=== PATIENT | female | born 1960 | race Caucasian/White ===

== ENCOUNTER 2017-05-18 13:30 | Inpatient (IN) | payer MEDICARE ==
[~2017-05-18] VITALS: Ht 172.7 cm; Wt 138.0 kg
--- NOTE | ~2017-05-18 | OR ---
PATIENT'S NAME: EVON [facility] AGE: 56 Y [address] . ROOM: [id number] [place] [id number] LOCATION: GICU ADMIT DATE: 05/18/2017 OR/Procedure Report DISCHARGE DATE: FAMILY PHYSICIAN: AUSTIN PEREZ MD ATTENDING PHYSICIAN: KEN BRADLEY SURGEON: Virgil Hoffman MD SOW FARM TECHNICIAN: DATE OF PROCEDURE: 05/24/2017 PREOPERATIVE DIAGNOSIS: Necrotizing cellulitis, left groin, suprapubic, and left lower quadrant pannus. POSTOPERATIVE DIAGNOSES: 1. Necrotizing cellulitis, left groin, suprapubic, and left lower quadrant pannus. 2. New left flank cellulitis. PROCEDURE PERFORMED: Exam under anesthesia with irrigation and debridement of necrotic tissue with incision and drainage of left lateral pannus/flank purulent cellulitis. ANESTHESIA: General. ESTIMATED BLOOD LOSS: 100 mL. SPECIMEN: Necrotic tissue, not sent. INDICATION: The patient is a 56-year-old young lady, who had vulvar necrotizing fasciitis, cellulitis. She presents now for third debridement. She has extending cellulitis along her left lower pannus toward the left flank. DESCRIPTION OF PROCEDURE: After informed consent, the patient was taken to the operating room, and after general endotracheal anesthesia, the patient was placed in stirrups, and her perineum, vulva, abdomen, and left flank were prepped and draped into a sterile field. We began by inspecting the vulvar incision which is along the length of the left side. It is actually very clean, no necrotic tissue. The skin at that wound was reapproximated with interrupted 3-0 Prolene inverted vertical mattress formation in order to get the skin apposed and sealed down, so that we can place a wound VAC eventually above it. The suprapubic location had several other cutaneous undrained pockets of purulent fluid which were opened. We debrided the necrotic tissue. We went down above the pubis to the rectus sheath and the sheath again looked without evidence of ischemia. The overlying pannus in the lateral left region had increased induration. We made a 10 inch incision in PATIENT'S NAME: EVON [facility] AGE: 56 Y [address] . ROOM: [id number] [place], [place] [id number] LOCATION: [facility] ADMIT DATE: 05/18/2017 OR/Procedure Report DISCHARGE DATE: FAMILY PHYSICIAN: AUSTIN PEREZ MD ATTENDING PHYSICIAN: KEN BRADLEY the left lower quadrant of the pannus, separate from our previous suprapubic transverse incision. We went through 10 inches of inflammatory changes of the subcutaneous tissue with micro abscesses. We broke free until we had met resistance, indicating good tissue. This wound did communicate down to the suprapubic wound. There was no devitalized tissue at this time. Therefore, when we were done, we placed Dakin soaked Kerlix into the wound, a total of 5 pieces. Pressure was held. The patient tolerated procedure well and was transferred to recovery room in stable condition. VIRGIL HOFFMAN MD WTS/modl /[id number] d: 05/24/17 1527 t: 05/30/17 0957, OPERATIVE SUMMARY
--- NOTE | ~2017-05-18 | DS ---
PATIENT'S NAME: ROBBIE BARNARD [facility] AGE: 56 Y [address] ROOM: [address] [address] LOCATION: [facility] ADMIT DATE: 05/18/2017 Discharge Summary DISCHARGE DATE: 06/05/2017 FAMILY PHYSICIAN: Nelly Ayers MD ATTENDING PHYSICIAN: Fawad Aquino DISCHARGE DIAGNOSES: 1. Sepsis secondary to left pannus/vulvar necrotizing cellulitis. 2. Polymicrobial wound infection. 3. Bacteremia with Gram-positive cocci (at [facility]). 4. Diabetes mellitus, 2, uncontrolled with an A1c of 10.5. 5. Chronic obstructive pulmonary disease. 6. Severe protein malnutrition with a prealbumin of less than 3 and albumin of 1. 7. Morbid obesity with a body mass index of 47. 8. Severe vitamin D deficiency (25-hydroxy D level of 15). 9. Hypokalemia. 10. Hypophosphatemia. DISCHARGE MEDICATIONS: 1. Lipitor 20 mg p.o. at bedtime. 2. Calcium carbonate with vitamin D 500 mg p.o. twice daily. 3. Colace 100 mg p.o. b.i.d. 4. Lasix 20 mg p.o. q.a.m. 5. NovoLog 9 units subcutaneously t.i.d. with meals (FlexPen). 6. Levemir 20 units subcutaneously at bedtime (FlexPen). 7. Potassium chloride 20 mEq p.o. daily. 8. Senna one tablet p.o. twice daily. 9. Zoloft 150 mg p.o. daily. 10. Vitamin D 50,000 units weekly x14 doses, started on 05/25/2017 and last dose will be 08/24/2017. 11. APAP 650 mg p.o. q.4 hours p.r.n. 12. Aubrey 5/325 one to two tablets p.o. q.4 hours p.r.n. 13. Metformin 500 mg p.o. daily. PRINCIPAL PROCEDURES: The patient underwent an I and D of her wound on three different occasions. Dates for these procedures were 05/18/2017, 05/20/2017, and 05/24/[address] Sutton's direction. Please refer to the operative notes for a detailed outline of each procedure. PERTINENT LABORATORY DATA: Wound culture did end up growing out polymicrobial species including Streptococcus anginosus and Peptostreptococcus anaerobius and Prevotella bivia. Blood cultures at our facility were no growth as was urine culture. White count upon day of admission was elevated at 20,300; this climbed to 30,700, and at the day of discharge was 8.1. The patient did have PATIENT'S NAME: ROBBIE BARNARD [facility] AGE: 56 Y [address] ROOM: [id number] [place], [place] [address] LOCATION: [facility] ADMIT DATE: 05/18/2017 Discharge Summary DISCHARGE DATE: 06/05/2017 FAMILY PHYSICIAN: Nelly Ayers MD ATTENDING PHYSICIAN: Fawad Aquino some mild hypokalemia with the lowest value being 3.2 on May 23. On the day of discharge, was 4.2. The patient was found to have an elevated hemoglobin A1c at 10.5, prealbumin level of less than 3, and albumin level of 1.0. HOSPITAL COURSE: Please refer to the admitting H and P dictated by Dr. Aquino for a more detailed outline of the patient's presentation. The patient was transferred to our facility from outside emergency department in [place] concerning a left groin abscess with cellulitis. The patient was felt to be in septic shock secondary to the skin infection. A procalcitonin level was elevated at 6.14 and lactate was 4.5. She was placed on the sepsis protocol, and was transitioned from ceftriaxone and vancomycin from the outside facility to vancomycin, Zosyn, and clindamycin, given the concern for necrotizing fasciitis. Dr. Sutton at that point had been contacted and consulted. The patient was given fluid boluses, given she was slightly hypotensive with blood pressures in the 80s. Culture grew out as what was aforementioned. The patient was placed on insulin sliding scale for blood sugar control. The patient was placed on a AMBULANCE ASSISTANT for pain control. The blood cultures did come back positive from the outside, felt more of hospital. A PICC line consult was placed. The patient had consultation with Nutrition, given her severe protein-calorie malnutrition. The vancomycin was ultimately discontinued. The patient was placed on Lovenox for DVT prophylaxis. She was ultimately transferred out of the unit. She was discharged to PCU status on 05/23/2017. She continued to be followed by Dr. Sutton from General Surgery standpoint. A 25-hydroxy D level was drawn and found to be deficient at 15. Therefore, she was placed on replacement of ergocalciferol 50,000 units weekly, starting on 05/25/2017. Wound Ostomy Service was also asked to follow and help manage in terms of wound management. The patient continued to make small gains. She continued on the Zosyn through 06/02/2017. The AMBULANCE ASSISTANT was ultimately discontinued on 05/29/2017. Ultimately, talk of a wound VAC was made, and the patient was readied for wound VAC placement. On 06/03/2017, arrangements started to be made for a discharge plan, mostly with assistance getting home wound VAC set up. This ultimately was accomplished, and the patient was able to discharge to her home on 06/05/2017. critical care educator spent a great deal of time with the patient, educating her on how to appropriately give herself insulin. Ultimately, the patient is discharged to her own home on 06/05/2017. We asked that she continue to track her blood sugars and follow up with Dr. Ayers in three to five days. She is to see Dr. Sutton in two weeks. She should adhere to a diabetic 1800-calorie diet. Activity is as tolerated. Home Health will be asked to follow along with this patient, given her wound VAC changes that will be needed. Care Management was greatly involved with her discharge. Home Health will work with the Wound Care team for further instructions. The patient voiced understanding of this plan. The patient PATIENT'S NAME: ROBBIE BARNARD [facility] AGE: 56 Y [address] ROOM: [address] [address] LOCATION: [facility] ADMIT DATE: 05/18/2017 Discharge Summary DISCHARGE DATE: 06/05/2017 FAMILY PHYSICIAN: Nelly Ayers MD ATTENDING PHYSICIAN: Fawad Aquino lives in [place], and feels she can manage there at home with the help of Home Health, and follow up with her primary care physician. Discharge of this patient took greater than 60 minutes, and included coordinating care with Wound Ostomy providers, Care Management, Diabetic educators, and Primary Care team. MILAD ALLRED PA-C FOR MD SHAY LIEBERMAN/modl /[id number] CC: MD Nelly Hein MD d: 06/06/17 0154 t: 06/06/17 1356, DISCHARGE SUMMARY
--- NOTE | ~2017-05-18 | OR ---
PATIENT'S NAME: EVON [facility] AGE: 56 Y [address] ROOM: [place] [address] LOCATION: GICU ADMIT DATE: 05/18/2017 OR/Procedure Report DISCHARGE DATE: FAMILY PHYSICIAN: PHYSICIAN, UNKNOWN ATTENDING PHYSICIAN: KEN BRADLEY SURGEON: Virgil Sutton MD QUALITY ASSURANCE TECHNICIAN: DATE OF PROCEDURE: 05/20/2017 PREOPERATIVE DIAGNOSES: 1. Left vulva, lower abdominal wall, and left groin necrotizing cellulitis. 2. Sepsis. POSTOPERATIVE DIAGNOSES: 1. Left vulva, lower abdominal wall, and left groin necrotizing cellulitis. 2. Sepsis. PROCEDURE PERFORMED: Second-look left groin/lower abdominal wall wound debridement. ANESTHESIA: General. ESTIMATED BLOOD LOSS: 50 mL. SPECIMEN: Necrotic subcutaneous tissue. INDICATION: The patient is a 56-year-old young lady, who came in approximately 48 hours ago with sepsis and found to have a significant cellulitis and abscess with skin necrosis of the left vulvar, groin, and lower abdominal wall region. She immediately underwent intraoperative wound debridement with mostly subcutaneous fat necrosis and skin. She had no evidence of fasciitis of the lower rectus sheath. She has remained fairly stable with clinical improvement, but is on Levophed for blood pressure support. I scheduled a second-look wound debridement. DESCRIPTION OF PROCEDURE: After informed consent, the patient was taken from the ICU directly to the operating room. She underwent general anesthetic. We then put her lower extremities in stirrups and prepped and draped the abdomen, flanks, inguinal, and vulvar regions. We removed all dressings. We initially debrided the transverse lower abdominal incision of necrotic tissue and both the medial and lateral edges had to be debrided of further necrotic subcutaneous tissue. We got back to a bleeding base of tissue circumferentially around the wound. We did extend the left groin incision horizontally another 5 inches. Nkaul necrosis was not noted, but ischemic subcutaneous tissue was debrided. The vulvar wound appeared excellent with [facility] 56 Y [address] ROOM: [place] [address] LOCATION: GICU ADMIT DATE: 05/18/2017 OR/Procedure Report DISCHARGE DATE: FAMILY PHYSICIAN: PHYSICIAN, UNKNOWN ATTENDING PHYSICIAN: KEN BRADLEY minimal debridement needed. We repacked it with Betadine-soaked Kerlix x2. The procedure was terminated. Instrument, sponge, and needle count were correct. She will be transferred to ICU in stable condition. MD LIS HILL/modl /[id number] d: 05/20/17 1732 t: 05/30/17 0954, OPERATIVE SUMMARY
--- NOTE | ~2017-05-18 | OR ---
PATIENT'S NAME: EVON [facility] AGE: 56 Y [address] ROOM: [place] [address] LOCATION: GICU ADMIT DATE: 05/18/2017 OR/Procedure Report DISCHARGE DATE: FAMILY PHYSICIAN: PHYSICIAN, UNKNOWN ATTENDING PHYSICIAN: KEN BRADLEY SURGEON: Virgil Sutton MD DATA KEYER: DATE OF PROCEDURE: 05/18/2017 PREOPERATIVE DIAGNOSIS: Left vulvar, left inguinal region, and pubic symphysis location subcutaneous emphysema with cellulitis and bullae, possible underlying necrotizing fasciitis. POSTOPERATIVE DIAGNOSIS: Subcutaneous emphysema with abscess, left vulvar, suprapubic, and left inguinal region. PROCEDURE: 1. Exam under anesthesia, vaginal speculum exam. 2. Incision and debridement of left labia location 15 cm incision with debridement of necrotic tissue. 3. Incision and debridement of transverse suprapubic location to left inguinal ligament with debridement of necrotic tissue. ANESTHESIA: General. ESTIMATED BLOOD LOSS: 150 mL. SPECIMEN: 1. Wound fluid for culture and sensitivity. 2. Necrotic tissue. INDICATION: The patient is a 56-year-old young lady, sick for a week, essentially residing in bed, developing increasing sore of her left labia and groin region. She got the pain got worse today. She had drainage over the last 72 hours, foul-smelling. She was seen by NICHOLAS James and found to have a large indurated mons pubis and swollen left labia with a draining abscess. CT showed subcutaneous emphysema. The patient had bullae along with induration. She had a white count of over 20,[address] evidence, it looked like a possible necrotizing fasciitis. The rectus muscle did not appear involved. DESCRIPTION OF PROCEDURE: After an informed consent, the patient was taken to the operating room by Anesthesia, where general endotracheal anesthesia, central line, arterial line, monitoring lines were placed. The patient was placed in lithotomy position in stirrups and her abdomen and peritoneum were PATIENT'S NAME: EVON [facility] AGE: 56 Y [address] ROOM: [place] [address] LOCATION: GICU ADMIT DATE: 05/18/2017 OR/Procedure Report DISCHARGE DATE: FAMILY PHYSICIAN: PHYSICIAN, UNKNOWN ATTENDING PHYSICIAN: KEN BRADLEY prepped and draped into a sterile field. Time-out performed, we confirmed the patient, planned procedure, administration of preop antibiotics. Speculum exam of the vagina was performed, no evidence of malignancy. We then began with a transverse suprapubic incision extending from the midline to about the location of the left inguinal ligament. Once through the dermis, we excised the full thickness skin of the bullae site, which were necrotic, and we encountered a large amount of nonbleeding tissue with a great tannish purulent fluid and cultured. We debrided all the necrotic tissue all the way back to viable tissue, which bled. Now, we went down to the anterior rectus sheath above the pubic symphysis, opened up the sheath, and the muscle was not necrotic, which we visualized. We extended over left lateral location down to the external oblique of the ilioinguinal ligament location and debrided all necrotic tissue, again the musculature appeared to be fine. We then made a separate incision from the drainage site of the lower vulva on the left side up approximately 15 cm, the transverse incision previously made was 20 cm. We made a T-like fashion, but we did not connect it to. Again, we encountered a large amount of purulent fluid along this tract, and we did a wide debridement back down to viable tissue, which bled. Once we had debrided all visible necrotic tissue, it actually had a very good surface bleeding circumferentially. We packed both wounds with a Betadine-soaked gauze. The patient tolerated the procedure well, was transferred directly to the ICU in stable condition. We will do daily wound check for possible return to the OR for additional debridement if necessary. MD LIS HILL/modl /[id number] d: 05/19/17 0025 t: 05/30/17 0952, OPERATIVE SUMMARY
--- NOTE | ~2017-05-18 | HP ---
PATIENT'S NAME: EVON [facility] AGE: 56 Y [address] ROOM: [id number] [place], [place] [address] LOCATION: GICU ADMIT DATE: 05/18/2017 History & Physical DISCHARGE DATE: FAMILY PHYSICIAN: PHYSICIAN, UNKNOWN ATTENDING PHYSICIAN: KEN BRADLEY DATE OF SERVICE: 05/18/2017 CHIEF COMPLAINT: Pelvic abscess and abdominal pain, concern for sepsis. HISTORY OF PRESENT ILLNESS: This is a 56-year-old female, who presented to outside emergency department in [facility] with left groin draining abscess with cellulitis. The patient has notable medical history of diabetes mellitus type 2 as well as history of IV drug use and current illicit drug use, though denies IV use currently. The patient was found at outside facility to be mildly hypotensive to 90s initially, improved with fluids to 110s systolic with a temp of 99.4 and a pulse of 91 and initial lab evaluation noted a white count of 21, sodium 124, creatinine 1.23 from a baseline of 0.7, procalcitonin 6.14, lactate 4.[address] scan showed some concern for necrotizing fasciitis, though this was not available until patient was in transport to [facility]. Blood cultures were also drawn at outside facility and the patient was started on ceftriaxone and vancomycin prior to transfer for treatment of severe sepsis secondary to a skin source. Currently, the patient is somewhat drowsy, seen immediately upon arrival to the ICU, along with Dr. Sutton, who is at bedside. She is unable to endorse new systemic concerns other than noting that she has had progressive perineal and pelvic pain for approximately the last 4 days. She does note recent subjective fevers, but no chest pain, shortness of breath, upper abdominal pain, vaginal bleeding, or bowel concerns. PAST MEDICAL HISTORY: Obtained from the patient to note type 2 diabetes. Family at bedside makes mention of recent, but not current IV illicit drug use. Also reported history of MRSA infection in the past. PAST SURGICAL HISTORY: Includes , tonsillectomy, and hysterectomy. FAMILY HISTORY: Completely reviewed and noncontributory to current presentation. SOCIAL HISTORY: As noted, history of IV drug use. Currently, a pack per day smoker. Denies alcohol or drug use. PATIENT'S NAME: EVON [facility] AGE: 56 Y [address] ROOM: [id number] [place], [place] [address] LOCATION: [facility] ADMIT DATE: 05/18/2017 History & Physical DISCHARGE DATE: FAMILY PHYSICIAN: PHYSICIAN, UNKNOWN ATTENDING PHYSICIAN: KEN BRADLEY ALLERGIES: THE PATIENT REPORTS AN ALLERGY TO MEDROL DOSEPAK. MEDICATIONS: Received ceftriaxone and vancomycin prior to transfer as well as 2 L of IV fluids prior to and during transfer. Med reconciliation is currently being performed otherwise. REVIEW OF SYSTEMS: Complete review of systems performed, negative except as noted above. PHYSICAL EXAMINATION: VITAL SIGNS: Temperature is 99.1, pulse 89, respirations 30, blood pressure 81/36. GENERAL: The patient is in no acute distress, although drowsy and states "I am just here." HEAD: Normocephalic, atraumatic. EYES: Pupils equal, round, and reactive to light. Extraocular muscles intact. No scleral icterus or conjunctival injection noted. ENT: Mucous membranes are dry. No nasal discharge. NECK: Supple. Unable to determine JVD due to neck size. No lymphadenopathy. The patient is hirsute with facial hair. CARDIOVASCULAR: Regular rate and rhythm. No murmurs appreciated. Pulses are 1+ bilaterally, radial and dorsalis pedis. RESPIRATIONS: Lungs are clear to auscultation bilaterally. The patient is tachypneic with normal respiratory effort and saturating well on room air. ABDOMEN: Obese, soft, and nontender with normoactive bowel sounds. : Notes an abscess with brown colored drainage actively draining all over left labia. EXTREMITIES: Without appreciable pitting edema. NEUROLOGIC: The patient is drowsy, but is able to move extremities. No focal deficits appreciated. LABS AND IMAGING: The patient is recently arrived to the ICU. Labs are from outside hospital and notable for white count 21, hemoglobin 15.3, platelets 200. Sodium 124, potassium 3.9, chloride 89, bicarb 20, BUN 19, creatinine 1.23 from baseline 0.7, glucose 331. AST 15, ALT 35, alkaline phosphatase 138, bilirubin total 1.9. Amylase 10, lipase 55. CRP 53.2. Procalcitonin 6.14. Lactate 4.5. Last A1c was 6.[address] from outside per verbal report from transferring provider, Naila Banuelos, is concern for necrotizing fasciitis in the correct clinical context. Urinalysis showed nitrites and 100 glucose as well as 15 ketones. Blood cultures were drawn and pending from outside. PATIENT'S NAME: ROBBIE BARNARD [facility] AGE: 56 Y [address] ROOM: [id number] [place], [place] [address] LOCATION: [facility] ADMIT DATE: 05/18/2017 History & Physical DISCHARGE DATE: FAMILY PHYSICIAN: PHYSICIAN, UNKNOWN ATTENDING PHYSICIAN: KEN BRADLEY ASSESSMENT: 1. Septic shock secondary to skin infection, specifically left labial abscess with cellulitis. 2. Insulin-dependent diabetes. 3. Hyponatremia. 4. Acute kidney injury. 5. Lactic acidosis. 6. History of IV drug use. PLAN: We will aggressively manage infection, sepsis protocol has been activated. We will transition the patient from ceftriaxone and vancomycin to vancomycin, Zosyn, and clindamycin given concern for necrotizing fasciitis. Dr. Sutton has been contacted and did see the patient at bedside and is planning to explore and debride this wound in the OR now. Blood pressures remain low at this point. Additional fluid boluses are ordered to obtain 30 mL/kg and if pressures remain low following that, we will add Levophed and titrate as needed. Blood cultures pending from outside facility. We will repeat them here as well as repeating lactic acid now in 3 hours. Repeat labs currently on admission are pending to further guide treatment specifically regarding hyperglycemia and hyponatremia. We will monitor closely for any evidence of withdrawal given questionable drug use history. DVT prophylaxis. We will hold for now given plans for OR. The patient is a full code. I spent 35 minutes of critical care time on date of admission [id number] with the patient, reviewing outside records and discussing with Dr. Sutton face-to- face and on-call Gynecology given concern that infection involves labia. MD ELAYNE RUSSO/blancal /[id number] D: [id number] T: [id number] HISTORY & PHYSICAL
--- NOTE | ~2017-05-18 | HP ---
PATIENT'S NAME: ROBBIE BARNARD [facility] AGE: 56 Y [address] ROOM: [id number] [place], [place] [address] LOCATION: [facility] ADMIT DATE: 05/18/2017 History & Physical DISCHARGE DATE: FAMILY PHYSICIAN: PHYSICIAN, UNKNOWN ATTENDING PHYSICIAN: FAWAD AQUINO DATE OF SERVICE: REFERRING PHYSICIAN: Fawad Aquino MD, Hospitalist Service. CHIEF COMPLAINT: Left groin and vulvar necrotizing fasciitis. REVIEW OF RECORD: Ms. Barnard is a 56-year-old young lady with obesity, large abdominal pannus, diabetes, who states that she has been home in bed naked with a fan on her for a week. She has had fevers and chills. She has had developing pain in her left vulvar region, left groin, lower abdominal wall. Over the last 72 hours, she said she had a drainage, foul-brownish odor coming from her vulva, the pain was mostly in the left side. She has not really been out of bed. She was transferred to the [place] [facility] where she was seen by NICHOLAS James. [place] [phone], she had low-grade fevers, she had cellulitis, bullous formation and a draining wound from her left vulva. They quickly suspected possible necrotizing fasciitis or at least a very bad cellulitis with abscess. The patient underwent a CT scan, which I reviewed with Dr. Jaime, our radiologist. There is subcutaneous emphysema on the left pubic region, lower pannus, and extending to the left inguinal ligament region. It does not appear to be subfascial of the rectus sheath. The patient on review upon presentation says she has noted the pain is worse in the left groin. She said she has never had this before this bad, but she has had previous "boils." She denies any perirectal pain. 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 No past radiation exposure. She denies hypertension. She denies any peripheral vascular disease. She denies any inciting trauma events or recent procedures. PAST MEDICAL HISTORY: Illnesses: 1. Obesity. 2. COPD. 3. Diabetes. 4. Left groin/vulvar potential necrotizing fasciitis. MEDICATIONS: List, see the admitting M[facility]. PATIENT'S NAME: ROBBIE BARNARD [facility] AGE: 56 Y [address] ROOM: [id number] [place], [place] [address] LOCATION: [facility] ADMIT DATE: 05/18/2017 History & Physical DISCHARGE DATE: FAMILY PHYSICIAN: PHYSICIAN, UNKNOWN ATTENDING PHYSICIAN: FAWAD AQUINO PREVIOUS SURGERIES: 1. Right shoulder procedure x2. 2. x1. SOCIAL HISTORY: She has a significant other who lives in [place]. She does not smoke or abuse alcohol. REVIEW OF SYSTEMS: The patient says she has no change in her vision or hearing. She says she has not really been out of bed for a week. She does not think she has any sores on her buttocks, no previous decubitus ulcers. She says she has not had any bleeding from her vagina or rectum, has not had any change in her bowel habits. She denies any swollen joints. Denies any back pain. PHYSICAL EXAMINATION: GENERAL: She is an ill-appearing young lady. VITAL SIGNS: Her temperature is 99.1, pulse 91, blood pressure on arrival was 94/57. HEENT: Head is normocephalic. Sclerae are nonicteric. Mucous membranes are dry. NECK: Supple. There is no adenopathy. LUNGS: Clear to auscultation. I did not auscultate any wheezing. HEART: Normal sinus rhythm. ABDOMEN: Obese. Over the prominent mons pubis in the lower pannus, she has erythema, some bullae over the mons and extends down into the left vulvar region. She has a draining wound with dirty brown fluid expressed with palpation. There may be slight crepitus with deep palpation, it tracks toward her inguinal ligament. The right groin appears to be intact away from the mons. She has 2/2 femoral pulses and no peripheral edema at the ankle. I inspected the anus, there maybe a grade 1 pressure injury, without skin breakdown. RECTAL: Normal tone. No perianal pain. No evidence of perirectal abscess. IMPRESSION: Severe left groin vulvar cellulitis, potential drainage abscess, cannot rule out necrotizing fasciitis. Suspect type 1 given her body habitus, diabetes, recent illness with polymicrobial bacteria. Recommend gentamicin, ampicillin, and clindamycin for broad spectrum coverage. I recommend immediate OR exploratory surgery for incision and debridement of devitalized tissue with open wounds remaining postop. I explained to the patient that if necrotizing fasciitis developing and has a significant mortality and that beg aggressive surgical debridement is indicated early. The patient understands that she will have large wounds and potential requirement of additional operative PATIENT'S NAME: ROBBIE BARNARD [facility] AGE: 56 Y [address] ROOM: [place] [address] LOCATION: [facility] ADMIT DATE: 05/18/2017 History & Physical DISCHARGE DATE: FAMILY PHYSICIAN: PHYSICIAN, UNKNOWN ATTENDING PHYSICIAN: FAWAD AQUINO washouts as well as possible wound VAC and skin grafting placement. I informed her of the potential for a speculum exam to make sure no SEED LABORATORY TECHNICIAN malignancy is evident. The patient agrees to proceed. Thank you very much for allowing me to participate in her care. CONNOR HOFFMAN MD WTMaricel/modl /[id number] D: [id number] T: [id number] HISTORY & PHYSICAL
[2017-05-18 15:46] LABS: BLOOD URINE 25 /UL (NEGATIVE); GLUCOSE URINE 50 mg/dL (NEGATIVE); KETONE URINE 5 mg/dL (NEGATIVE); LEUKOCYTES URINE 25 /UL (NEGATIVE); NITRITE URINE NEGATIVE (NEGATIVE); PROTEIN URINE 30 mg/dL (NEGATIVE); TURBIDITY URINE CLEAR (CLEAR); UROBILINOGEN URINE 8 mg/dL (NORMAL)
[2017-05-18 15:52] LABS: COLOR URINE OTHER (YELLOW)
[2017-05-18 16:07] LABS: RBC URINE RARE #/HPF (NEGATIVE); WBC URINE 0-2 #/HPF (NEGATIVE)
[2017-05-18 16:08] LABS: BACTERIA URINE RARE (NEGATIVE)
[2017-05-18 19:46] LABS: BICARBONATE 21.9 mmol/L (18.0-23.0); LACTATE 2.9 mEq/L (0.50-1.60); PCO2 37 mmHg (35-45); PO2 155 mmHg (80-90)
[2017-05-18 19:56] LABS: INR - (THERAPEUTIC) 1.06 (0.92-1.07); PROTIME 11.1 SECONDS (9.8-11.4)
[2017-05-18 20:20] LABS: ANION GAP 12.3 (10.0-19.0); CALCIUM 7.8 mg/dL (8.5-10.5); CREATININE 0.8 mg/dL (0.5-1.1); POTASSIUM 3.3 mMol/L (3.7-5.1); TOTAL BILIRUBIN 1.7 mg/dL (0.0-1.5); TOTAL PROTEIN 5.6 g/dL (6.0-8.4)
[2017-05-18 20:21] LABS: ALBUMIN 1.5 gm/dL (3.5-5.0)
[2017-05-18 21:05] LABS: BICARBONATE 24.8 mmol/L (18.0-23.0)
[2017-05-18 21:06] LABS: PCO2 54 mmHg (35-45)
[2017-05-18 21:06] LABS: BICARBONATE 20.5 mmol/L (18.0-23.0); PCO2 43 mmHg (35-45); PO2 234 mmHg (80-90); POTASSIUM 3.5 mEq/L (3.7-5.1); SODIUM 130 mEq/L (135-145)
[2017-05-18 21:07] LABS: PO2 42 mmHg (80-90)
[2017-05-18 23:23] LABS: BICARBONATE 21.2 mmol/L (18.0-23.0); LACTATE 3.9 mEq/L (0.50-1.60); PCO2 32 mmHg (35-45); PO2 105 mmHg (80-90)
[2017-05-19 05:48] LABS: ALBUMIN 1.3 gm/dL (3.5-5.0); ANION GAP 17.3 (10.0-19.0); CALCIUM 7.6 mg/dL (8.5-10.5); CREATININE 0.9 mg/dL (0.5-1.1); POTASSIUM 3.3 mMol/L (3.7-5.1); TOTAL BILIRUBIN 1.9 mg/dL (0.0-1.5); TOTAL PROTEIN 5.3 g/dL (6.0-8.4)
[2017-05-19 05:49] LABS: HEMOGLOBIN 12.8 g/dL (10.0-15.0); MCH 33.2 pg (27.0-34.0); MCHC 35.6 gm/dL (32.0-36.5); MCV 93.5 fl (83.0-98.0); PLATELET COUNT 220 K/uL (150-450); RBC 3.85 M/uL (3.50-5.50); RDW-CV 12.5 % (11.9-14.6)
[2017-05-19 05:50] LABS: WBC 20.3 K/uL (4.0-11.0)
[2017-05-19 06:17] LABS: BANDED NEUTROPHIL # 4.3 K/uL (0.0-0.1); BANDED NEUTROPHILS % 21 %; LYMPHOCYTE # 1.6 K/uL (0.8-4.0); LYMPHOCYTE % 8 %
[2017-05-19 06:18] LABS: ABSOLUTE NEUTROPHIL CT (ANC) 16.4 K/uL (1.8-7.8); SEGMENTED NEUTROPHIL # 12.2 K/uL (1.8-7.8); SEGMENTED NEUTROPHIL % 60 %
[2017-05-21 06:07] LABS: HEMOGLOBIN 12.5 g/dL (10.0-15.0); MCH 33.2 pg (27.0-34.0); MCHC 34.7 gm/dL (32.0-36.5); MCV 95.5 fl (83.0-98.0); MPV 9.7 fl (9.4-12.4); RBC 3.77 M/uL (3.50-5.50); RDW-CV 12.8 % (11.9-14.6)
[2017-05-21 06:08] LABS: PLATELET COUNT 287 K/uL (150-450); WBC 28.7 K/uL (4.0-11.0)
[2017-05-21 06:26] LABS: ALK PHOS 141 IU/L (33-138); ALT 26 IU/L (12-78); ANION GAP 10.8 (10.0-19.0); AST 30 IU/L (10-40); BLOOD UREA NITROGEN 11 mg/dL (6-24); CHLORIDE 100 mMol/L (96-110); CO2 28 mMol/L (22-32); CREATININE 0.6 mg/dL (0.5-1.1); POTASSIUM 3.8 mMol/L (3.7-5.1); SODIUM 135 mMol/L (135-145); TOTAL BILIRUBIN 2.1 mg/dL (0.0-1.5); TOTAL PROTEIN 5.4 g/dL (6.0-8.4)
[2017-05-21 06:29] LABS: ALBUMIN 1.2 gm/dL (3.5-5.0); CALCIUM 7.3 mg/dL (8.5-10.5)
[2017-05-21 06:38] LABS: MAGNESIUM 2.2 mg/dL (1.8-2.6); PHOSPHORUS 2.5 mg/dL (2.5-4.9)
[2017-05-21 07:40] LABS: LYMPHOCYTE # 0.6 K/uL (0.8-4.0); LYMPHOCYTE % 2 %; MONOCYTE # 1.1 K/uL (0.0-1.0)
[2017-05-21 07:41] LABS: ABSOLUTE NEUTROPHIL CT (ANC) 26.7 K/uL (1.8-7.8); BANDED NEUTROPHIL # 13.5 K/uL (0.0-0.1); BANDED NEUTROPHILS % 47 %; SEGMENTED NEUTROPHIL # 13.2 K/uL (1.8-7.8); SEGMENTED NEUTROPHIL % 46 %
[2017-05-21] MEDS ORDERED: ZOLOFT100 MG PO (13:19)
[2017-05-21] MEDS ORDERED: GLUCOPHAGE500 MG PO (13:20)
[2017-05-21] MEDS ORDERED: LIPITOR20 M1 PO (13:21)
[2017-05-21] MEDS ORDERED: MOBIC7.5 MG PO (13:23)
[2017-05-21] MEDS ORDERED: PRINIVIL (ZESTR20 MG PO (13:23)
[2017-05-21] MEDS ORDERED: ALDACTONE100 MG PO (13:24)
[2017-05-21] MEDS ORDERED: NORCO 5-325 TA1 EACH PO (13:26)
[2017-05-22 04:46] LABS: ANION GAP 9.4 (10.0-19.0); CHLORIDE 103 mMol/L (96-110); CO2 29 mMol/L (22-32); CREATININE 0.5 mg/dL (0.5-1.1); POTASSIUM 3.4 mMol/L (3.7-5.1); SODIUM 138 mMol/L (135-145)
[2017-05-22 04:48] LABS: ALBUMIN 1.1 gm/dL (3.5-5.0); BLOOD UREA NITROGEN 19 mg/dL (6-24); CALCIUM 7.4 mg/dL (8.5-10.5); MAGNESIUM 2.8 mg/dL (1.8-2.6); PHOSPHORUS 1.9 mg/dL (2.5-4.9)
[2017-05-22 04:52] LABS: HEMATOCRIT 33.6 % (33.0-46.0); HEMOGLOBIN 11.5 g/dL (10.0-15.0); MCHC 34.2 gm/dL (32.0-36.5); MCV 96.3 fl (83.0-98.0); MPV 9.7 fl (9.4-12.4); PLATELET COUNT 281 K/uL (150-450); RBC 3.49 M/uL (3.50-5.50)
[2017-05-22 04:53] LABS: WBC 25.5 K/uL (4.0-11.0)
[2017-05-22 05:49] LABS: ABSOLUTE NEUTROPHIL CT (ANC) 23.7 K/uL (1.8-7.8); BANDED NEUTROPHIL # 3.3 K/uL (0.0-0.1); BANDED NEUTROPHILS % 13 %; LYMPHOCYTE # 0.8 K/uL (0.8-4.0); LYMPHOCYTE % 3 %; MONOCYTE # 0.8 K/uL (0.0-1.0); SEGMENTED NEUTROPHIL # 20.4 K/uL (1.8-7.8); SEGMENTED NEUTROPHIL % 80 %
[2017-05-23 04:53] LABS: HEMATOCRIT 35.4 % (33.0-46.0); HEMOGLOBIN 12.2 g/dL (10.0-15.0); MCH 32.8 pg (27.0-34.0); MCHC 34.5 gm/dL (32.0-36.5); MCV 95.2 fl (83.0-98.0); MPV 9.4 fl (9.4-12.4); PLATELET COUNT 303 K/uL (150-450); RBC 3.72 M/uL (3.50-5.50); RDW-CV 13.3 % (11.9-14.6)
[2017-05-23 05:13] LABS: ALBUMIN 1.2 gm/dL (3.5-5.0); ALK PHOS 205 IU/L (33-138); ALT 36 IU/L (12-78); ANION GAP 11.2 (10.0-19.0); AST 60 IU/L (10-40); BLOOD UREA NITROGEN 25 mg/dL (6-24); CALCIUM 7.6 mg/dL (8.5-10.5); CHLORIDE 104 mMol/L (96-110); CO2 28 mMol/L (22-32); CREATININE 0.6 mg/dL (0.5-1.1); PHOSPHORUS 1.8 mg/dL (2.5-4.9); POTASSIUM 3.2 mMol/L (3.7-5.1); SODIUM 140 mMol/L (135-145); TOTAL BILIRUBIN 1.7 mg/dL (0.0-1.5); TOTAL PROTEIN 5.3 g/dL (6.0-8.4)
[2017-05-23 05:14] LABS: WBC 30.7 K/uL (4.0-11.0)
[2017-05-23 05:35] LABS: ABSOLUTE NEUTROPHIL CT (ANC) 30.1 K/uL (1.8-7.8); BANDED NEUTROPHIL # 3.4 K/uL (0.0-0.1); BANDED NEUTROPHILS % 11 %; LYMPHOCYTE # 0.6 K/uL (0.8-4.0); LYMPHOCYTE % 2 %; SEGMENTED NEUTROPHIL # 26.7 K/uL (1.8-7.8); SEGMENTED NEUTROPHIL % 87 %
[2017-05-23 17:04] LABS: ANION GAP 10.8 (10.0-19.0); BLOOD UREA NITROGEN 23 mg/dL (6-24); CHLORIDE 102 mMol/L (96-110); CO2 28 mMol/L (22-32); CREATININE 0.5 mg/dL (0.5-1.1); PHOSPHORUS 3.6 mg/dL (2.5-4.9); POTASSIUM 3.8 mMol/L (3.7-5.1); SODIUM 137 mMol/L (135-145)
[2017-05-23 17:06] LABS: ALBUMIN 1.1 gm/dL (3.5-5.0); CALCIUM 7.4 mg/dL (8.5-10.5)
[2017-05-24 05:51] LABS: ALBUMIN 1.1 gm/dL (3.5-5.0); ANION GAP 11.2 (10.0-19.0); BLOOD UREA NITROGEN 19 mg/dL (6-24); CALCIUM 7.3 mg/dL (8.5-10.5); CHLORIDE 102 mMol/L (96-110); CO2 29 mMol/L (22-32); CREATININE 0.5 mg/dL (0.5-1.1); PHOSPHORUS 3.3 mg/dL (2.5-4.9); POTASSIUM 3.2 mMol/L (3.7-5.1); SODIUM 139 mMol/L (135-145)
[2017-05-24 05:57] LABS: HEMATOCRIT 32.5 % (33.0-46.0); HEMOGLOBIN 11.4 g/dL (10.0-15.0); MCH 33.4 pg (27.0-34.0); MCHC 35.1 gm/dL (32.0-36.5); MCV 95.3 fl (83.0-98.0); MPV 9.5 fl (9.4-12.4); PLATELET COUNT 285 K/uL (150-450); RBC 3.41 M/uL (3.50-5.50); RDW-CV 13.4 % (11.9-14.6)
[2017-05-24 05:58] LABS: WBC 20.7 K/uL (4.0-11.0)
[2017-05-24 06:20] LABS: ABSOLUTE NEUTROPHIL CT (ANC) 16.8 K/uL (1.8-7.8); BANDED NEUTROPHIL # 2.5 K/uL (0.0-0.1); BANDED NEUTROPHILS % 12 %; LYMPHOCYTE # 3.3 K/uL (0.8-4.0); LYMPHOCYTE % 16 %; MONOCYTE # 0.6 K/uL (0.0-1.0); SEGMENTED NEUTROPHIL # 14.3 K/uL (1.8-7.8); SEGMENTED NEUTROPHIL % 69 %
[2017-05-25 03:36] LABS: ALK PHOS 214 IU/L (33-138); ALT 31 IU/L (12-78); ANION GAP 9.3 (10.0-19.0); AST 38 IU/L (10-40); BLOOD UREA NITROGEN 12 mg/dL (6-24); CALCIUM 6.9 mg/dL (8.5-10.5); CHLORIDE 102 mMol/L (96-110); CO2 29 mMol/L (22-32); CREATININE 0.4 mg/dL (0.5-1.1); PHOSPHORUS 2.8 mg/dL (2.5-4.9); POTASSIUM 3.3 mMol/L (3.7-5.1); SODIUM 137 mMol/L (135-145); TOTAL BILIRUBIN 1.3 mg/dL (0.0-1.5); TOTAL PROTEIN 4.8 g/dL (6.0-8.4)
[2017-05-25 03:41] LABS: BASOPHIL % 0.2 %; EOSINOPHIL # 0.2 K/uL (0.0-0.5); HEMATOCRIT 28.3 % (33.0-46.0); HEMOGLOBIN 9.7 g/dL (10.0-15.0); IMMATURE GRANULOCYTE # 0.4 K/uL (0.0-0.3); IMMATURE GRANULOCYTE % 2.4 %; LYMPHOCYTE # 2.5 K/uL (0.8-4.0); LYMPHOCYTE % 13.5 %; MCH 32.3 pg (27.0-34.0); MCHC 34.3 gm/dL (32.0-36.5); MCV 94.3 fl (83.0-98.0); MONOCYTE # 0.4 K/uL (0.0-1.0); MONOCYTE % 2.3 %; MPV 9.4 fl (9.4-12.4); NEUTROPHIL # (ANC) 14.6 K/uL (1.8-7.8); NEUTROPHIL % 80.6 %; NRBC % 0.4 /100WBC (0-0.00); PLATELET COUNT 235 K/uL (150-450); RDW-CV 13.5 % (11.9-14.6)
[2017-05-25 03:45] LABS: WBC 18.2 K/uL (4.0-11.0)
[2017-05-26 06:36] LABS: ANION GAP 10.1 (10.0-19.0); BLOOD UREA NITROGEN 9 mg/dL (6-24); CHLORIDE 105 mMol/L (96-110); CO2 28 mMol/L (22-32); CREATININE 0.5 mg/dL (0.5-1.1); PHOSPHORUS 2.7 mg/dL (2.5-4.9); POTASSIUM 4.1 mMol/L (3.7-5.1); SODIUM 139 mMol/L (135-145)
[2017-05-26 06:40] LABS: ALBUMIN 1.1 gm/dL (3.5-5.0); CALCIUM 7.2 mg/dL (8.5-10.5)
[2017-05-26 06:45] LABS: BASOPHIL % 0.2 %; EOSINOPHIL # 0.3 K/uL (0.0-0.5); EOSINOPHIL % 2.5 %; HEMATOCRIT 29.9 % (33.0-46.0); HEMOGLOBIN 10.4 g/dL (10.0-15.0); IMMATURE GRANULOCYTE # 0.3 K/uL (0.0-0.3); LYMPHOCYTE # 2.4 K/uL (0.8-4.0); LYMPHOCYTE % 19.5 %; MCH 33.3 pg (27.0-34.0); MCHC 34.8 gm/dL (32.0-36.5); MCV 95.8 fl (83.0-98.0); MONOCYTE # 0.8 K/uL (0.0-1.0); MONOCYTE % 6.3 %; MPV 9.5 fl (9.4-12.4); NEUTROPHIL # (ANC) 8.6 K/uL (1.8-7.8); NEUTROPHIL % 69.5 %; NRBC % 0.5 /100WBC (0-0.00); PLATELET COUNT 248 K/uL (150-450); RBC 3.12 M/uL (3.50-5.50); RDW-CV 13.7 % (11.9-14.6); WBC 12.4 K/uL (4.0-11.0)
[2017-05-27 03:16] LABS: ALK PHOS 356 IU/L (33-138); ALT 37 IU/L (12-78); ANION GAP 9.6 (10.0-19.0); AST 40 IU/L (10-40); BLOOD UREA NITROGEN 9 mg/dL (6-24); CALCIUM 7.5 mg/dL (8.5-10.5); CHLORIDE 102 mMol/L (96-110); CO2 28 mMol/L (22-32); CREATININE 0.5 mg/dL (0.5-1.1); POTASSIUM 4.6 mMol/L (3.7-5.1); SODIUM 135 mMol/L (135-145); TOTAL PROTEIN 5.7 g/dL (6.0-8.4)
[2017-05-27 03:18] LABS: ALBUMIN 1.2 gm/dL (3.5-5.0); TOTAL BILIRUBIN 0.8 mg/dL (0.0-1.5)
[2017-05-27 03:47] LABS: BASOPHIL % 0.2 %; EOSINOPHIL # 0.3 K/uL (0.0-0.5); EOSINOPHIL % 2.2 %; HEMATOCRIT 31.8 % (33.0-46.0); HEMOGLOBIN 10.7 g/dL (10.0-15.0); IMMATURE GRANULOCYTE # 0.2 K/uL (0.0-0.3); IMMATURE GRANULOCYTE % 1.5 %; LYMPHOCYTE # 2.9 K/uL (0.8-4.0); MCH 32.6 pg (27.0-34.0); MCHC 33.6 gm/dL (32.0-36.5); MONOCYTE # 0.9 K/uL (0.0-1.0); MONOCYTE % 7.2 %; MPV 9.7 fl (9.4-12.4); NEUTROPHIL # (ANC) 8.7 K/uL (1.8-7.8); NEUTROPHIL % 66.9 %; NRBC % 0.2 /100WBC (0-0.00); PLATELET COUNT 294 K/uL (150-450); RBC 3.28 M/uL (3.50-5.50); RDW-CV 13.6 % (11.9-14.6)
[2017-05-29 03:42] LABS: ANION GAP 10.1 (10.0-19.0); BLOOD UREA NITROGEN 13 mg/dL (6-24); CALCIUM 7.8 mg/dL (8.5-10.5); CHLORIDE 101 mMol/L (96-110); CO2 29 mMol/L (22-32); CREATININE 0.5 mg/dL (0.5-1.1); POTASSIUM 4.1 mMol/L (3.7-5.1); SODIUM 136 mMol/L (135-145)
[2017-05-29 03:43] LABS: ALBUMIN 1.3 gm/dL (3.5-5.0)
[2017-05-29 03:45] LABS: BASOPHIL % 0.3 %; EOSINOPHIL # 0.3 K/uL (0.0-0.5); EOSINOPHIL % 1.7 %; HEMATOCRIT 30.9 % (33.0-46.0); HEMOGLOBIN 10.5 g/dL (10.0-15.0); IMMATURE GRANULOCYTE # 0.1 K/uL (0.0-0.3); IMMATURE GRANULOCYTE % 0.8 %; LYMPHOCYTE # 2.9 K/uL (0.8-4.0); LYMPHOCYTE % 18.8 %; MCH 33.3 pg (27.0-34.0); MCV 98.1 fl (83.0-98.0); MONOCYTE # 1.3 K/uL (0.0-1.0); MPV 9.3 fl (9.4-12.4); NEUTROPHIL # (ANC) 11.1 K/uL (1.8-7.8); NEUTROPHIL % 70.4 %; NRBC % 0 /100WBC (0-0.00); PLATELET COUNT 343 K/uL (150-450); RBC 3.15 M/uL (3.50-5.50); WBC 15.7 K/uL (4.0-11.0)
[2017-05-31 03:47] LABS: BASOPHIL # 0.1 K/uL (0.0-0.2); BASOPHIL % 0.5 %; EOSINOPHIL # 0.3 K/uL (0.0-0.5); EOSINOPHIL % 2.6 %; IMMATURE GRANULOCYTE % 0.2 %; LYMPHOCYTE # 3.1 K/uL (0.8-4.0); LYMPHOCYTE % 32.3 %; MCH 33.1 pg (27.0-34.0); MCHC 33.3 gm/dL (32.0-36.5); MCV 99.3 fl (83.0-98.0); MONOCYTE # 1.1 K/uL (0.0-1.0); MONOCYTE % 11.1 %; MPV 8.9 fl (9.4-12.4); NEUTROPHIL % 53.3 %; NRBC % 0 /100WBC (0-0.00); PLATELET COUNT 395 K/uL (150-450); RBC 3.02 M/uL (3.50-5.50); RDW-CV 14.5 % (11.9-14.6); WBC 9.4 K/uL (4.0-11.0)
[2017-06-03 06:15] LABS: BASOPHIL # 0.1 K/uL (0.0-0.2); BASOPHIL % 0.9 %; EOSINOPHIL # 0.2 K/uL (0.0-0.5); HEMATOCRIT 31.5 % (33.0-46.0); IMMATURE GRANULOCYTE % 0.3 %; LYMPHOCYTE % 39.1 %; MCH 31.9 pg (27.0-34.0); MCHC 31.7 gm/dL (32.0-36.5); MCV 100.6 fl (83.0-98.0); MONOCYTE # 0.8 K/uL (0.0-1.0); MONOCYTE % 10.8 %; MPV 8.5 fl (9.4-12.4); NEUTROPHIL # (ANC) 3.5 K/uL (1.8-7.8); NEUTROPHIL % 45.9 %; NRBC % 0 /100WBC (0-0.00); PLATELET COUNT 383 K/uL (150-450); RBC 3.13 M/uL (3.50-5.50); RDW-CV 14.7 % (11.9-14.6); WBC 7.7 K/uL (4.0-11.0)
[2017-06-04 05:49] LABS: BASOPHIL # 0.1 K/uL (0.0-0.2); BASOPHIL % 0.9 %; EOSINOPHIL # 0.2 K/uL (0.0-0.5); EOSINOPHIL % 2.9 %; HEMATOCRIT 31.6 % (33.0-46.0); HEMOGLOBIN 10.4 g/dL (10.0-15.0); IMMATURE GRANULOCYTE % 0.1 %; LYMPHOCYTE # 2.8 K/uL (0.8-4.0); LYMPHOCYTE % 33.8 %; MCH 33.1 pg (27.0-34.0); MCHC 32.9 gm/dL (32.0-36.5); MCV 100.6 fl (83.0-98.0); MONOCYTE # 0.8 K/uL (0.0-1.0); MONOCYTE % 10.2 %; MPV 8.5 fl (9.4-12.4); NEUTROPHIL # (ANC) 4.2 K/uL (1.8-7.8); NEUTROPHIL % 52.1 %; NRBC % 0 /100WBC (0-0.00); PLATELET COUNT 379 K/uL (150-450); RBC 3.14 M/uL (3.50-5.50); RDW-CV 14.6 % (11.9-14.6); WBC 8.1 K/uL (4.0-11.0)
[2017-06-04 06:06] LABS: ALK PHOS 163 IU/L (33-138); ALT 29 IU/L (12-78); ANION GAP 9.2 (10.0-19.0); AST 23 IU/L (10-40); BLOOD UREA NITROGEN 12 mg/dL (6-24); CHLORIDE 106 mMol/L (96-110); CO2 31 mMol/L (22-32); CREATININE 0.5 mg/dL (0.5-1.1); POTASSIUM 4.2 mMol/L (3.7-5.1); SODIUM 142 mMol/L (135-145); TOTAL PROTEIN 6.3 g/dL (6.0-8.4)
[2017-06-04 06:10] LABS: ALBUMIN 1.7 gm/dL (3.5-5.0); CALCIUM 7.4 mg/dL (8.5-10.5)
[2017-06-04 06:11] LABS: TOTAL BILIRUBIN 0.4 mg/dL (0.0-1.5)
[2017-06-05] MEDS ORDERED: OSCAL + D500 MG PO (17:00)
[2017-06-05] MEDS ORDERED: COLACE100 MG PO (17:01)
[2017-06-05] MEDS ORDERED: LASIX20 MG PO (17:01)
[2017-06-05] MEDS ORDERED: NOVOLOG100 UNIT/M SUB-Q (17:04)
[2017-06-05] MEDS ORDERED: LEVEMIR FL100 UNIT/1 SUB-Q (17:05)
[2017-06-05] MEDS ORDERED: KCL - MICRO-K10 MEQ PO (17:06)
[2017-06-05] MEDS ORDERED: SENOKOT8.6 MG PO (17:07)
[2017-06-05] MEDS ORDERED: DRISDOL 5050000 UNIT PO (17:09)
[2017-06-05] MEDS ORDERED: TYLENOL325 MG PO (17:10)
[2017-06-05] MEDS ORDERED: NORCO 5-325 TA1 EACH PO (17:11)
== END 2017-06-05 18:30 | disposition home health service (06) | DRG 853 ==
LOC: GICU 14:30 → GPCU 05-25 22:49 → GMSU 05-31 17:23
PROVIDERS: Anesthesiology; Family Medicine; Internal Medicine; Physician Assistant; Surgery; ADMIT Internal Medicine
PROC: 0J9C0ZX Drainage of Pelvic Region Subcutaneous Tissue and Fascia, Open Approach, Diagnostic (ICD-10-PCS; principal; 2017-05-18)
PROC: 0JBB0ZZ Excision of Perineum Subcutaneous Tissue and Fascia, Open Approach (ICD-10-PCS; 2017-05-20)
PROC: 0JBB0ZZ Excision of Perineum Subcutaneous Tissue and Fascia, Open Approach (ICD-10-PCS; 2017-05-24)
DX: A41.50 Gram-negative sepsis, unspecified (principal); E43 Unspecified severe protein-calorie malnutrition; M72.6 Necrotizing fasciitis; R65.21 Severe sepsis with septic shock; N17.9 Acute kidney failure, unspecified; J96.11 Chronic respiratory failure with hypoxia; E87.1 Hypo-osmolality and hyponatremia; Z68.42 Body mass index [BMI] 45.0-49.9, adult; L03.90 Cellulitis, unspecified; F32.9 Major depressive disorder, single episode, unspecified; E66.01 Morbid (severe) obesity due to excess calories; E87.6 Hypokalemia; E55.9 Vitamin D deficiency, unspecified; J44.9 Chronic obstructive pulmonary disease, unspecified; F17.210 Nicotine dependence, cigarettes, uncomplicated; G47.33 Obstructive sleep apnea (adult) (pediatric)
CPT/HCPCS: C1751; C9113; J1650; J1720; J2270; J2543; J2997; J3010; J3370; J3480; J7030; J7040; J7050; J7060